=== PATIENT | male | born 1990 | race African-American/Black ===

== ENCOUNTER 2016-08-30 19:52 | Emergency (ER) | payer MEDICAID, OTHER ==
[~2016-08-30] VITALS: Ht 167.6 cm; Wt 72.6 kg
[2016-08-30] MEDS ORDERED: ONDANSETRON 4 MG TAB.RAPDIS SL ONE (22:00)
[2016-08-30 22:03] LABS: DIFF TOTAL % 100 %; EOSINOPHILS # (AUTO) 0.2 /CMM (0.0-0.7); EOSINOPHILS % (AUTO) 0.6 % (0.0-6.0); HEMATOCRIT 46 % (39-51); HEMOGLOBIN 15.1 g/dL (13.5-17.5); LYMPHOCYTES # (AUTO) 0.2 /CMM (0.8-4.8); LYMPHOCYTES % (AUTO) 0.8 % (20.0-44.0); MEAN CORPUSCULAR HEMOGLOBIN 30 PG (26.0-33.0); MEAN CORPUSCULAR HGB CONC 33 g/dl (31.0-36.0); MEAN CORPUSCULAR VOLUME 91 fL (80-96); MONOCYTES # (AUTO) 0.8 /CMM (0.1-1.30); MONOCYTES % (AUTO) 3.1 % (2.0-12.0); NEUTROPHILS # (AUTO) 25.2 /CMM (1.8-8.9); NEUTROPHILS % (AUTO) 95.5 % (43.0-81.0); PLATELET COUNT (AUTO) 162 /CMM (150-450); RED BLOOD CELL COUNT(AUTO) 5.07 MIL/uL (4.5-6.0); WHITE BLOOD COUNT (AUTO) 26.4 K/uL (4.3-11.0)
[2016-08-30 22:11] LABS: CALCIUM, SERUM 9.5 mg/dL (8.5-10.1); CREATININE 1.3 mg/dL (0.6-1.3)
[2016-08-30 22:17] LABS: ALBUMIN 3.9 g/dL (3.4-5.0); BILIRUBIN,DIRECT 2.3 mg/dL (0.0-0.2); BILIRUBIN,TOTAL 3.1 mg/dL (0.2-1.0); INDIRECT BILIRUBIN 0.8 mg/dL (0.0-1.1); TOTAL PROTEIN, SERUM 8.1 g/dL (6.4-8.2)
[2016-08-30] MEDS ORDERED: IV NS 0.9% 1,000 ML BAG IV ONE (22:30)
[2016-08-30] MEDS ORDERED: HYDROMORPHONE 1 MG/1 ML DISP.SYRIN ONE (22:42)
[2016-08-30] MEDS ORDERED: IV SET PRIMARY 1 EA INFUS.SET MC ONE (22:42)
[2016-08-30] MEDS ORDERED: IV NS 0.9% 2,000 ML ONE (22:43)
[2016-08-30] MEDS ORDERED: ONDANSETRON HCL/PF 4 MG/2 ML VIAL ONE (22:43)
[2016-08-30] MEDS ORDERED: HYDROMORPHONE 1 MG/1 ML DISP.SYRIN IV ONE (23:00)
[2016-08-30] MEDS ORDERED: ONDANSETRON HCL/PF 4 MG/2 ML VIAL IV ONE (23:00)
[2016-08-30] MEDS ORDERED: PENICILLIN G BENZATHINE 2.4 MMU/4 ML ML IM ONE ×2 (23:24→23:30)
[2016-08-30 23:40] LABS: INR 1.19 (0.87-1.13); PROTHROMBIN TIME 12.9 SECS (9.5-12.7)
[2016-08-31 00:06] VITALS: BP 118/66
== END 2016-08-31 00:07 | disposition home or self-care (01) ==
LOC: ER 19:56 → EDSEX 19:56 → ER 08-31 00:07
DX: J03.90 Acute tonsillitis, unspecified (principal); K75.9 Inflammatory liver disease, unspecified; Z88.2 Allergy status to sulfonamides
CPT/HCPCS: 36415; 74176; 80048; 80076; 82962; 83690; 85025; 85730; 96361; 96372; 96374; 96375; 99285; A4606; J0558; J1170; J2405; J7030; Z7610

== ENCOUNTER 2021-02-08 15:07 | Emergency (ER) | payer OTHER ==
[~2021-02-08] VITALS: Ht 172.7 cm; Wt 72.6 kg
[2021-02-08 15:19] VITALS: BP 137/71
[2021-02-08] MEDS ORDERED: TDAP [DIPH/PERTUSSIS/TET] 0.5 ML VIAL IM ONE ×2 (15:30→15:35)
[2021-02-08] MEDS ORDERED: AMOX/CLAVULANATE 875 MG TABLET PO ONE (15:30)
[2021-02-08] MEDS ORDERED: HYDROCODONE/APAP 5/325MG TABLET PO ONE (15:30)
[2021-02-08] MEDS ORDERED: HYDROCODONE/APAP 5/325MG TABLET ONE (15:35)
[2021-02-08] MEDS ORDERED: AMOX/CLAVULANATE 875 MG TABLET ONE (15:35)
[2021-02-08] MEDS ORDERED: NAPR-1164 PO (16:17)
[2021-02-08] MEDS ORDERED: AMOX1TAB16 PO (16:17)
[2021-02-08] MEDS ORDERED: HYDR-4209 PO (16:17)
--- NOTE | 2021-02-08 16:44 | NUR ---
Patient discharged to home in stable condition. Written and verbal after care instructions given. Patient verbalizes understanding of instruction.
== END 2021-02-08 16:44 | disposition home or self-care (01) ==
LOC: ER 15:13
DX: S60.011A Contusion of right thumb without damage to nail, initial encounter (principal); S67.01XA Crushing injury of right thumb, initial encounter; L08.9 Local infection of the skin and subcutaneous tissue, unspecified; Z88.2 Allergy status to sulfonamides; Y04.1XXA Assault by human bite, initial encounter; Y93.89 Activity, other specified; Y92.89 Other specified places as the place of occurrence of the external cause; Y99.8 Other external cause status
CPT/HCPCS: 73140-TC; 90715